=== PATIENT | female | born 1940 | race Caucasian/White ===

== ENCOUNTER 2023-07-08 07:33 | Day surgery (SDC) | payer OTHER, MEDICAID ==
[~2023-07-08] VITALS: Ht 160 cm; Wt 74.1 kg
[~2023-07-08 07:33] MED LIST: KETOROLAC TROMETHAMINE 0.5% 5 ML OPHTHALMIC SOLUTION ONE; MOXIFLOXACIN HCL 0.5% 3 ML OPHTHALMIC SOLUTION ONE; PHENYLEPHRINE HCL 2.5% 2 ML OPHTHALMIC SOLUTION ONE; RINGERS SOLUTION,LACTATED 500 ML IV ONE; TROPICAMIDE 1% 2 ML OPHTHALMIC SOLUTION ONE
[2023-07-08] MEDS: KETOROLAC TROMETHAMINE 0.5% 5 ML OPHTHALMIC SOLUTION OD SCH ×3 (08:31→08:42)
[2023-07-08] MEDS: PHENYLEPHRINE HCL 2.5% 2 ML OPHTHALMIC SOLUTION OD SCH ×3 (08:32→08:42)
[2023-07-08] MEDS: MOXIFLOXACIN HCL 0.5% 3 ML OPHTHALMIC SOLUTION OD SCH ×3 (08:32→08:43)
[2023-07-08] MEDS: TROPICAMIDE 1% 2 ML OPHTHALMIC SOLUTION OD SCH ×3 (08:32→08:42)
[2023-07-08] MEDS ORDERED: POVIDONE-IODINE 5% 30 ML OPHTHALMIC SOLUTION ONE (10:37)
[2023-07-08] MEDS ORDERED: TETRACAINE HCL/PF 0.5% 4 ML OPHTHALMIC SOLUTION ONE (10:41)
[2023-07-08] MEDS ORDERED: EPINEPHrine 1:1,000 [1 MG/ML] VIAL ONE (10:44)
[2023-07-08] MEDS ORDERED: BALANCED SALT 15 ML OPHTHALMIC IRRIG.SOLN ONE (11:08)
[2023-07-08] MEDS ORDERED: LIDOCAINE/PF 1% 2 ML VIAL ONE (11:14)
[2023-07-08] MEDS ORDERED: LORA10TA7 PO (14:03)
[2023-07-08] MEDS ORDERED: LOSA-381 PO (14:03)
[2023-07-08] MEDS ORDERED: SIMV-261 PO (14:03)
[2023-07-08] MEDS ORDERED: OMEP20 PO (14:03)
[2023-07-08] MEDS ORDERED: MELA5TAB40 PO (14:03)
== END 2023-07-08 10:40 | disposition home or self-care (01) ==
LOC: SURGERY 07:33
PROVIDERS: ATTEND Ophthalmology
DX: H25.11 Age-related nuclear cataract, right eye (principal); I10 Essential (primary) hypertension; Z79.899 Other long term (current) drug therapy; D64.9 Anemia, unspecified; Z85.3 Personal history of malignant neoplasm of breast
CPT/HCPCS: 66984; J0171; J3490; Q9967; J7120; V2632

== ENCOUNTER 2023-09-09 09:13 | Day surgery (SDC) | payer OTHER, MEDICAID ==
[~2023-09-09] VITALS: Ht 160 cm; Wt 74.1 kg
[~2023-09-09 09:13] MED LIST changes: +BALANCED SALT 15 ML OPHTHALMIC IRRIG.SOLN ONE; +LORA10TA7 PO; +LOSA-381 PO; +MELA5TAB40 PO; +OMEP20 PO; +POVIDONE-IODINE 5% 30 ML OPHTHALMIC SOLUTION ONE; +SIMV-261 PO
[2023-09-09] MEDS ORDERED: MIDAZOLAM HCL 2 MG/2 ML VIAL IVP ONE (09:14)
[2023-09-09] MEDS ORDERED: FentaNYL CITRATE PF 100 MCG/2 ML VIAL IVP ONE (09:14)
[2023-09-09] MEDS: RINGERS SOLUTION,LACTATED 500 ML IV ONE (09:54)
[2023-09-09] MEDS: TROPICAMIDE 1% 2 ML OPHTHALMIC SOLUTION OS SCH (09:54)
[2023-09-09] MEDS: KETOROLAC TROMETHAMINE 0.5% 5 ML OPHTHALMIC SOLUTION OS SCH (09:54)
[2023-09-09] MEDS: PHENYLEPHRINE HCL 2.5% 2 ML OPHTHALMIC SOLUTION OS SCH (09:54)
[2023-09-09] MEDS: MOXIFLOXACIN HCL 0.5% 3 ML OPHTHALMIC SOLUTION OS SCH (09:55)
[2023-09-09] MEDS: LIDOCAINE/PF 1% 2 ML VIAL ONE (11:00)
[2023-09-09] MEDS: EPINEPHrine 1:1,000 [1 MG/ML] VIAL ONE (11:00)
[2023-09-09] MEDS: TETRACAINE HCL/PF 0.5% 4 ML OPHTHALMIC SOLUTION ONE (11:00)
== END 2023-09-09 12:00 | disposition home or self-care (01) ==
LOC: SURGERY 09:13
PROVIDERS: ATTEND Ophthalmology
DX: H25.12 Age-related nuclear cataract, left eye (principal); I10 Essential (primary) hypertension; D64.9 Anemia, unspecified; Z98.49 Cataract extraction status, unspecified eye
CPT/HCPCS: 66984; 93005; J0171; J3010; J3490; J2250; Q9967; J7120; V2632